=== PATIENT | male | born 1960 | race Caucasian/White ===

== ENCOUNTER 2024-08-15 11:32 | Outpatient (CLI) | payer MEDICAID, SELFPAY ==
--- NOTE | 2024-08-15 11:42 | CT_ITS ---
WS: [id number] CTA THORACIC TECHNIQUE: Contrast enhanced CTA of the thoracic aorta with coronal and sagittal reformatted images and maximum intensity projection (MIP) images. CLINICAL INFORMATION: ANEURYSM OF ARCH OF AORTA W/O RUPTURE COMPARISON: CT 08/30/2023 DLP: 1028.[address] scans at [facility] use at least one of these dose optimization techniques: automated exposure control; mA and/or kV adjustment per patient size (includes targeted exams where dose is matched to clinical indication); or iterative reconstruction. FINDINGS: Dilatation of the thoracic aorta at the aortic root measuring 5.5 cm. This is unchanged from 2023 outside imaging. Otherwise normal caliber thoracic aorta. Normal caliber descending thoracic aorta. Celiac and SMA are patent. Proximal renal arteries are patent. Accessory LEFT renal artery is patent. Proximal main pulmonary arteries are normal. Vertebral artery originates from the aortic arch. Proximal subclavian arteries are patent. Great vessel origins are normal. No mediastinal or hilar lymphadenopathy. No axillary lymphadenopathy. Adrenal glands are normal. RIGHT renal cyst. Small esophageal hiatal hernia. Slight bibasilar atelectasis. No acute pulmonary infiltrates. CT/CT angio chest [id number] IMPRESSION: 1. Dilatation of the aortic root measuring 5.5 cm unchanged since the outside study. 2. LEFT vertebral artery originates from the aortic arch. 3. No other acute findings.
[2024-08-15] MEDS: iohexol 350 mg/mL 500 mL Btl (per mL) IV (12:30)
== END 2024-08-15 11:33 | disposition home or self-care (01) ==
LOC: RAD 11:35
PROVIDERS: PCP Nurse Practitioner; Visit Provider Nurse Practitioner
DX: I77.810 Thoracic aortic ectasia (principal); N28.1 Cyst of kidney, acquired; K44.9 Diaphragmatic hernia without obstruction or gangrene; J98.11 Atelectasis
CPT/HCPCS: 71275

== ENCOUNTER 2024-08-28 09:52 | Outpatient (CLI) | payer MEDICAID, SELFPAY ==
--- NOTE | 2024-08-28 10:01 | USCV_ITS ---
Celso Quinteros Age: 63 Gender: M : 1960 Exam Date: 08/28/2024 10:18 Ordering Phys: Mikie Otero Technologist: PATEL Exam Location: [facility] Indication: aaa screening HISTORY: Diameter (cm) AP x Transverse x Length Velocity (cm/s) Waveform Prox Aorta: 2.28 x 2.21 x 53.50 Triphasic Mid Aorta: 1.81 x 1.86 x 51.80 Triphasic Distal Aorta: 3.15 x 4.03 x 70.20 Triphasic Right Iliac Prox: 1.30 x 1.29 x 73.20 Triphasic Left Iliac Prox: 1.10 x 1.60 x 91.30 Triphasic Stent Prox Landing x x Aneurysmal Sac Max x x Lt Lat Sac Dim Rt Lat Sac Dim Stent Dist Landing x x Right Iliac Stent x x Left Iliac Stent x x Right Renal Art Left Renal Art FINDINGS: CONCLUSIONS Distal AAA measuring 3.1 x 4.0cm AP x trans Normal proximal common iliac arteries Moderate atheromatous plaque Hernan Whalen MD (Electronically Signed) Final Date: 28 August 2024 11:12 S
== END 2024-08-28 09:53 | disposition home or self-care (01) ==
PROVIDERS: PCP Nurse Practitioner; Visit Provider Nurse Practitioner
DX: I71.22 Aneurysm of the aortic arch, without rupture (principal); I70.90 Unspecified atherosclerosis
CPT/HCPCS: 93978

== ENCOUNTER 2024-09-19 12:22 | Emergency (ER) | payer MEDICAID, SELFPAY ==
[2024-09-19 12:38] VITALS: BP 130/82; PULSE 65; RESP 16; TEMP 36.7; O2SAT 98; BMI 29.2
--- OUTSIDE RECORDS SUMMARY | 2024-09-19 12:40 | XMS_ITS | Clinical Summary ---
Author Organization [facility] Address [address] Rajan: Epic Prelude ADT [place]UN[place] [address] Care Team Providers Care Spider Assembler Name Role Phone Wang Morrow Primary Care Provider + Allergies No known active allergies Medications mupirocin (BACTROBAN) 2 % OintmentIndicatio ns:Fungal infection of nail,Ingrown nail of great toe of left foot Apply to affected area daily. 22 Gram 1 4 Active cyclobenzaprine (FLEXERIL) 10 mg tabletIndications :Acute midline low back pain without sciatica Take 1 Tablet (10 mg) by mouth 3 times daily as needed for Spasm, Discomfort or Pain. 30 Tablet 4 Active diclofenac sodium (VOLTAREN) 1 % gel Apply 4 Grams to affected area 4 times daily. 100 Gram 4 Active losartan (COZAAR) 50 mg tabletIndications :Aneurysm of ascending aorta without rupture,Primary hypertension Take 1 Tablet (50 mg) by mouth daily. 90 Tablet 1 4 Active traMADoL (ULTRAM) 50 mg tabletIndications :Acute midline low back pain without sciatica Take 1 Tablet (50 mg) by mouth every 8 hours as needed for Pain. 21 Tablet 4 Active omeprazole (PriLOSEC) 40 mg Capsule, Delayed Release(E.C.) Take 1 Capsule (40 mg) by mouth daily. 90 Capsule 1 5 Active metoprolol succinate (TOPROL XL) 25 mg Extended Release 24 hour tablet take 1/2 tablet by mouth daily 40 Tablet 5 Active Active Problems Problem Noted Date Diagnosed Date Pre-operative cardiovascular examination 024 Flank pain 08/30/2023 Chest pressure 08/30/2023 Constipation 08/30/2023 Infrarenal abdominal aortic aneurysm (AAA) witho ut rupture 08/30/2023 Left lower quadrant abdominal pain 08/30/2023 Renal cyst, right 08/30/2023 Viral gastroenteritis 08/30/2023 Status post below-knee amputation of right lower extremity 06/25/2021 CAD (coronary atherosclerotic disease) 2 Aneurysm of ascending aorta 11/28/2019 Elevated troponin 11/27/2019 Precordial chest pain 11/27/2019 Palpitations 11/27/2019 NSTEMI (non-ST elevated myocardial infarction) 0 11/26/2019 Overview (07/25/2020): Added automatically from request for surgery [id number] Cellulitis of finger of right hand 10/29/2019 Lingual tonsil hypertrophy- prominent tissue left BOT per VSO 08/19/2019 Bo's edema of vocal folds 08/19/2019 Generalized anxiety disorder 06/19/2019 Chronic bilateral low back pain without sciatica 06/19/2019 History of hepatitis C 06/19/2019 Obstructive sleep apnea syndrome 03/29/2019 COPD 09/11/2018 Chronic pain 02/11/2016 Gastroesophageal reflux disease 02/11/2016 Tobacco use 01/26/2015 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 Resolved Problems Problem Noted Date Diagnosed Date Resolved Date Osteomyelitis of right ankle s/p BKA 06/25/2021 09/15/2023 Aortic root dilatation 11/28/201901/17 Sore throat 07/02/2017 06/19/2019 Cellulitis of foot, right 05/12/2017 Ingrown nail of second toe of right foot 05/12/2017 06/19/2019 Arm numbness 02/11/2016 06/19/2019 Other pruritus 02/11/2016 06/19/2019 Gastroesophageal reflux dise ase with esophagitis 06/19/2019 Other chronic pain 0 Encounters Date Type Department Care Team Description 09/18/2024 External Device Data STL ABSTRACTION Provider, Abstract 09/11/2024 External Device Data STL ABSTRACTION Provider, Abstract 08/07/2024 External Device Data STL ABSTRACTION Provider, Abstract 06/26/2024 External Device Data STL ABSTRACTION Provider, Abstract from Last 3 Months Immunizations Immunization Administration Dates Next Due INFLUENZA VACCINE QUADRIVALENT 3 YR UP PF IM INFLUENZA VACCINE QUADRIVALENT 6 MOS UP PF IM ,04/17/2019 Influenza Seasonal Unspecified Formulation IM Family History Medical History Relation Name Comments Cancer Father Jackson prostate cancer Colon Cancer Maternal Grandfather Don Cancer Maternal Grandmother Cheri lymphno de cancer Heart Disease Mother Cami Other Mother Cami heart issues Cancer Paternal Grandfather Zachary prostat e cancer Stroke Paternal Grandmother Susana Healthy Sister Shawnee Unknown Sister Shawnee Relation Name Status Comments Father Jackson Maternal Grandfather Don Maternal Grandmother Cheri Mother Cami Paternal Grandfather Zachary Paternal Grandmother Susana Sister Shawnee Alive Social History Tobacco Use Types Packs/Day Years Used Date Smoking Tobacco: Former Cigarettes Smokeless Tobacco: Never Tobacco Cessation:Counseling Given: Not Answered Alcohol Use Standard Drinks/Week Comments Not Currently 0 (1 standard drink = 0.6 oz pur e alcohol) Feeling Safe Answer Date Recorded Are you in a relationship wi th someone who hurts you emotionally and/or physically? 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 Gender Identity Not on file Sexual Orientation Not on file Last Filed Vital Signs Vital Sign Reading Time Taken Comments Blood Pressure 140/82 01/10/2024 11:00 AM CDT Pulse 74 01/10/2024 9:55 AM CDT Temperature 36.6 C (97.8 F) 01/09/2024 3:38 PM CDT Respiratory Rate 18 01/09/2024 3:38 PM CDT Oxygen Saturation 98% 01/10/2024 9:55 AM CDT Inhaled Oxygen Concentration - - Weight 123.4 kg (272 lb) 01/10/2024 9:55 AM CDT Height 205.7 cm (6' 9 ) 01/10/2024 9:55 AM CDT Body Mass Index 29.15 01/10/2024 9:55 AM CDT Plan of Treatment Health Maintenance Due Date Last Done Comments DTAP/TDAP/TD VACCINES (1 - Tdap) 12/16/1978 FIT-DNA Q 3 years 12/16/2004 FIT/FOBT Q 1 year 12/16/2004 Flex Sig/CT Colonography Q 5 years 12/16/2004 ZOSTER VACCINE (1 of 2) 12/16/2009 RSV VACCINE (60+ or ) (1 - Risk 60-74 years 1-dose series) 2019 INFLUENZA VACCINE (#1) 2023 , 04/17/2019, 01/09/2018, Additional history exists Preventative Visit- Commercial 03/28/2024 09/15/2023 Pre-Diabetes and Diabetes Screening 01/09/2027 01/10/2024, 09/15/2023, 01/15/2022, Additional history exists COLORECTAL SCREENING 12/30/2027 12/29/2022, 12/29/2022, 12/29/2022, Additional history exists Colorectal Cancer Screening 12/30/2027 Procedures Procedure Name Priority Date/Time Associated Diagnosis Comments HEMOGLOBIN A1C Routine 01/10/2024 10:30 AM CDT Nausea Flank pain Prediabetes Aneurysm of ascending aorta without rupture Hematuria, unspecified type Acute midline low back pain without sciatica COLONOSCOPY REPORT 12/29/2022 9: 29 AM CDT from Last 3 Months or Most Recently Relevant to Health Maintenance Results * (ABNORMAL) HEMOGLOBIN A1C (01/10/2024 10:30 AM CDT) HEMOGLOBIN A1C 5.9(H) <5.7 % of total Hgb [facility] Comment: For someone without known diabetes, a hemoglobin A1c value between 5.7% and 6.4% is consistent with prediabetes and should be confirmed with a follow-up test. For someone with known diabetes, a value <7% indicates that their diabetes is well controlled. A1c targets should be individualized based on duration of diabetes, age, comorbid conditions, and other considerations. This assay result is consistent with an increased risk of diabetes. Currently, no consensus exists regarding use of hemoglobin A1c for diagnosis of diabetes for children. ESTIMATED AVERAGE GLUCOSE (MG/DL) 123 mg/dL [facility] ESTIMATED AVERAGE GLUCOSE (MMOL/L) 6.8 mmol/L [facility] Comment: FASTING:YES FASTING: YES Test Performed at: [facility] [id number] [id number] Kenia Pineda MD Blood 01/10/2024 10:3 0 AM CDT 01/10/2024 10:30 AM CDT us Joanna Yanirajimena CHILD CHEMISTRY ORDERABLES Final Resu lt [facility] [phone] [facility] [id number] [id number] * COLONOSCOPY REPORT (12/29/2022 9:29 AM CDT) Narrative Procedure Note Farshad Del Rio MD - 12/29/2022 9:29 AM CDT [facility] GI Patient Name: Celso Quinteros Procedure Date: 12/29/2022 Date of : 1960 Admit Type: Outpatient Age: 62 Attending MD: Farshad Del Rio , , Procedure: Colonoscopy Indications: Change in bowel habits Providers: Farshad Del Rio Referring MD: Wang Morrow DO Medicines: Monitored Anesthesia Care Complications: No immediate complications. Procedure: After I obtained informed consent, the scope was passed under direct vision. Throughout the procedure, the patient's blood pressure, pulse, and oxygen saturations were monitored continuously. The Colonoscope was introduced through the anus and advanced to the cecum, identified by appendiceal orifice and ileocecal valve. The colonoscopy was performed without difficulty. The patient tolerated the procedure well. The quality of the bowel preparation was evaluated using the BBPS ([place] Bowel Preparation Scale) with scores of: Right Colon = 2 (minor amount of residual staining, small fragments of stool and/or opaque liquid, but mucosa seen well), Transverse Colon = 3 (entire mucosa seen well with no residual staining, small fragments of stool or opaque liquid) and Left Colon = 3 (entire mucosa seen well with no residual staining, small fragments of stool or opaque liquid). The total BBPS score equals 8. Estimated Blood Loss: Estimated blood loss was minimal. Findings: Four sessile polyps were found in the descending colon, transverse colon and ascending colon. The polyps were 3 to 5 mm in size. These polyps were removed with a cold snare. Resection and retrieval were complete. The exam was otherwise without abnormality on direct and retroflexion views. Impression: - Four 3 to 5 mm polyps in the descending colon, in the transverse colon and in the ascending colon, removed with a cold snare. Resected and retrieved. - The examination was otherwise normal on direct and retroflexion views. Recommendation: - Await pathology results. Farshad Del Rio, 12/29/2022 9:29:34 AM Number of Addenda: 0 Note Initiated On: 12/29/2022 8:55 AM Scope Withdrawal Time 0 hours 11 minutes 46 seconds Scope In: 9:06:27 AM Scope Out: 9:22:50 AM [address] [place], [place] Farshad Del Rio MD GI PROCEDURE ORDERABLES Final Result from Last 3 Months or Most Recently Relevant to Health Maintenance Insurance [employer] [facility] Commercial * Guarantor: [id number] Account Type Relation to Patient Date of Phone Billing Address Workers Comp Employer * Guarantor: [id number] Account Type Relation to Patient Date of Phone Billing Address Workers Comp Employer Advance Directives For more information, please contact: [phone] * Full Code (Latest Code Status on File) Date Activated Date Inactivated Comments 10/03/2023 7:27 AM 10/03/2023 3:30 PM * Full Code Date Activated Date Inactivated Comments 12/29/2022 8:31 AM 12/29/2022 12:07 PM * Full Code Date Activated Date Inactivated Comments 06/25/2021 7:23 PM 06/30/2021 1:12 PM Care Teams Spider Assembler Relationship Specialty Start Date End Date Wang Morrow DO [address] [place] [phone] PCP - General Internal Medicine 02/12/21
--- OUTSIDE RECORDS SUMMARY | 2024-09-19 12:41 | XMS_ITS | Encounter Summary ---
Author Organization [facility] Address [address] [place] [address] Care Team Providers Care Top Collar Maker Name Role Phone Wang Morrow DO Primary Care Provider + Reason for Visit * Reason Onset Date Comments preauth 11/18/2022 Encounter Details Date Type Department Care Team (Late st Contact Info) Description 11/18/2022 Telephone [facility] [address] [place] [address] Yusef De La Paz MD NO ADDRESS ON FILE [facility] Social History Tobacco Use Types Packs/Day Years Used Date Smoking Tobacco: Every Day Cigarettes Smokeless Tobacco: Never Alcohol Use Standard Drinks/Week Comments Not Currently 0 (1 standard drink = 0.6 oz pur e alcohol) Sex and Gender Information Value Date Recorded Sex Assigned at Not on file Legal Sex Male 2:51 PM CONTACT CENTER REPRESENTATIVE Gender Identity Not on file Sexual Orientation Not on file documented as of this encounter Miscellaneous Notes * Telephone Encounter - Carlee Grace - 11/18/2022 8:[address] De La Paz Call back # [phone] Multiple recipients? No Jose A calls with [facility] info . [place] studies have been approved . Auth [id number]. Lucas for 30 days . documented in this encounter Plan of Treatment Not on file documented as of this encounter Visit Diagnoses Not on filedocumented in this encounter Additional Health Concerns Assessment Noted Time PHQ-9 Depression Total Score: 2 02/12/20 21 2:00 PM CONTACT CENTER REPRESENTATIVE documented as of this encounter Care Teams Top Collar Maker Relationship Specialty Start Date End Date Wang Morrow DO [address] [place] [address] PCP - General Internal Medicine 02/12/21 documented as of this encounter
--- OUTSIDE RECORDS SUMMARY | 2024-09-19 12:41 | XMS_ITS | Encounter Summary ---
Author Organization [facility] Address [address] [place] [address] Care Team Providers Care Ditching Machine Operator Name Role Phone Fany Hernandes MD Primary Care Provider [phone] Encounter Details Date Type Department Care Team (Latest Contact Info) Description 05/10/2006 Outpatient Historical [facility] Occupational Medicine [address] [address] Anant Garcia Jr., MD NO ADDRESS ON FILE Routine Medical Exam (Primary Dx) Social History Tobacco Use Types Packs/Day Years Used Date Smoking Tobacco: Never Assessed Sex and Gender Information Value Date Recorded Sex Assigned at Not on file 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 Gender Identity Not on file Sexual Orientation Not on file documented as of this encounter Plan of Treatment Not on file documented as of this encounter Visit Diagnoses Diagnosis Routine medical exam- Primary Routine general medical examination at a health care facility documented in this encounter Additional Health Concerns Infection Onset Date Last Indicated Resolved Time R/O COVID-19 11/07/2019 11/07/2019 11/09/2019 8:45 AM CDT R/O COVID-19 01/25/2020 01/25/2020 01/26/2020 4:01 PM CDT documented as of this encounter Care Teams Ditching Machine Operator Relationship Specialty Start Date End Date Fany Hernandes MD PCP - General Family Practice 06/12/19 documented as of this encounter
--- OUTSIDE RECORDS SUMMARY | 2024-09-19 12:41 | XMS_ITS | Encounter Summary ---
Author Organization [facility] Address [address] [place] [address] Care Team Providers Care Bottom Man Name Role Phone Fany Hernandes MD Primary Care Provider [phone] Encounter Details Date Type Department Care Team (Latest Contact Info) Description 05/31/2002 Outpatient Historical [facility] [address] [place] [address] Damian Porter, DDS [address] [place] [address] COMMUNIC DIS CONTACT NOS (Primary Dx) Social History Tobacco Use Types Packs/Day Years Used Date Smoking Tobacco: Never Assessed Sex and Gender Information Value Date Recorded Sex Assigned at Not on file Legal Sex Male 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 Gender Identity Not on file Sexual Orientation Not on file documented as of this encounter Plan of Treatment Not on file documented as of this encounter Visit Diagnoses Diagnosis Contact with or exposure to unspecified communicable disease- Primary documented in this encounter Additional Health Concerns Infection Onset Date Last Indicated Resolved Time R/O COVID-19 11/07/2019 11/07/2019 11/09/2019 8:45 AM CDT R/O COVID-19 01/25/2020 01/25/2020 01/26/2020 4:01 PM CDT documented as of this encounter Care Teams Bottom Man Relationship Specialty Start Date End Date Fany Hernandes MD PCP - General Family Practice 06/12/19 documented as of this encounter
--- OUTSIDE RECORDS SUMMARY | 2024-09-19 12:41 | XMS_ITS | Encounter Summary ---
Author Organization [facility] Address [address] [place] [address] Care Team Providers Care Lurer Name Role Phone Wang Morrow DO Primary Care Provider + Encounter Details Date Type Department Care Team (Late st Contact Info) Description 09/18/2024 External Device Data [facility] ABSTRACTION Provider, Abstract NO ADDRESS ON FILE Social History Tobacco Use Types Packs/Day Years Used Date Smoking Tobacco: Former Cigarettes Smokeless Tobacco: Never Alcohol Use Standard Drinks/Week Comments Not Currently 0 (1 standard drink = 0.6 oz pur e alcohol) Feeling Safe Answer Date Recorded Are you in a relationship wi th someone who hurts you emotionally and/or physically? No 01/09/2024 Sex and Gender Information Value Date Recorded Sex Assigned at Not on file Legal Sex Male 2:51 PM DIALYSIS CLINICAL MANAGER Gender Identity Not on file Sexual Orientation Not on file documented as of this encounter Plan of Treatment Not on file documented as of this encounter Visit Diagnoses Not on filedocumented in this encounter Care Teams Lurer Relationship Specialty Start Date End Date Wang Morrow DO [address] [place] [phone] PCP - General Internal Medicine 02/12/21 documented as of this encounter
--- OUTSIDE RECORDS SUMMARY | 2024-09-19 12:41 | XMS_ITS | Encounter Summary ---
Author Organization [facility] Address [address] [place] [address] Care Team Providers Care Fur Blender Name Role Phone Fany Hernandes MD Primary Care Provider [phone] Encounter Details Date Type Department Care Team (Late st Contact Info) Description 01/17/2007 Emergency [facility] Emergency Department [address] 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 Gender Identity Not on file Sexual Orientation Not on file documented as of this encounter Plan of Treatment Not on file documented as of this encounter Visit Diagnoses Diagnosis Acute bronchitis- Primary documented in this encounter Additional Health Concerns Infection Onset Date Last Indicated Resolved Time R/O COVID-19 11/07/2019 11/07/2019 11/09/2019 8:45 AM CDT R/O COVID-19 01/25/2020 01/25/2020 01/26/2020 4:01 PM CDT documented as of this encounter Care Teams Fur Blender Relationship Specialty Start Date End Date Fany Hernandes MD PCP - General Family Practice 06/12/19 documented as of this encounter
--- OUTSIDE RECORDS SUMMARY | 2024-09-19 12:41 | XMS_ITS | Encounter Summary ---
Author Organization [facility] Address [address] [place] [address] Care Team Providers Care Installers Mechanical Name Role Phone Fany Hernandes MD Primary Care Provider [phone] Encounter Details Date Type Department Care Team (Latest Contact Info) Description 12/20/1997 Outpatient Historical [facility] [address] [place] [address] Gaby Taylor MD [address] [place] [phone] Lumbago (Primary Dx) Social History Tobacco Use Types Packs/Day Years Used Date Smoking Tobacco: Never Assessed Sex and Gender Information Value Date Recorded Sex Assigned at Not on file 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 Gender Identity Not on file Sexual Orientation Not on file documented as of this encounter Plan of Treatment Not on file documented as of this encounter Visit Diagnoses Diagnosis Lumbago- Primary documented in this encounter Additional Health Concerns Infection Onset Date Last Indicated Resolved Time R/O COVID-19 11/07/2019 11/07/2019 11/09/2019 8:45 AM CDT R/O COVID-19 01/25/2020 01/25/2020 01/26/2020 4:01 PM CDT documented as of this encounter Care Teams Installers Mechanical Relationship Specialty Start Date End Date Fany Hernandes MD PCP - General Family Practice 06/12/19 documented as of this encounter
--- OUTSIDE RECORDS SUMMARY | 2024-09-19 12:41 | XMS_ITS | Encounter Summary ---
Author Organization [facility] Address [address] [place] [address] Care Team Providers Care Market Asset Protection Manager Name Role Phone Wang Morrow DO Primary Care Provider + Encounter Details Date Type Department Care Team (Late st Contact Info) Description 09/11/2024 External Device Data [facility] ABSTRACTION Provider, [...] on file Legal Sex Male 2:51 PM MIDDLE OR INTERMEDIATE SCHOOL PRINCIPAL Gender Identity Not on file Sexual Orientation Not on file documented as of this encounter Plan of Treatment Not on file documented as of this encounter Visit Diagnoses Not on filedocumented in this encounter Care Teams Market Asset Protection Manager Relationship Specialty Start Date End Date Wang Morrow DO [address] [place] [phone] PCP - General Internal Medicine 02/12/21 documented as of this encounter
--- OUTSIDE RECORDS SUMMARY | 2024-09-19 12:41 | XMS_ITS | Encounter Summary ---
Author Organization [facility] Address [address] [place] [address] Care Team Providers Care Outside Physical Damage Appraiser Name Role Phone Wang Morrow Primary Care Provider + Encounter Details Date Type Department Care Team (Late st Contact Info) Description 08/30/2023 Lab Requisition [facility] Laboratory Services [address] [place] [address] Tere Simmons, EDGER TECHNICIAN [address] [place] [address] Unspecified abdominal pain Social History Tobacco Use Types Packs/Day Years Used Date Smoking Tobacco: Every Day Cigarettes Smokeless Tobacco: Never Alcohol Use Standard Drinks/Week Comments Not Currently 0 (1 standard drink = 0.6 oz pur e alcohol) Feeling Safe Answer Date Recorded Are you in a relationship wi th someone who hurts you emotionally and/or physically? No 12/29/2022 Sex and Gender Information Value Date Recorded Sex Assigned at Not on file Legal Sex Male 2:51 PM PET TECHNOLOGIST Gender Identity Not on file Sexual Orientation Not on file documented as of this encounter Plan of Treatment Not on file documented as of this encounter Procedures Procedure Name Priority Date/Time Associated Diagnosis Comments EXTRA TUBE (BLUE) Routine 08/30/2023 11: 54 AM CDT Unspecified abdominal pain CBC WITH DIFFERENTIAL Stat 08/30/2023 11:54 AM CDT Unspecified abdominal pain C-REACTIVE PROTEIN Stat 08/30/2023 11 :54 AM CDT Unspecified abdominal pain TROPONIN Stat 08/30/2023 11:54 AM CDT Unspecified abdominal pain LIPASE Stat 08/30/2023 11:54 AM CDT Unspecified abdominal pain COMPREHENSIVE METABOLIC PANEL Stat 08/30/2023 11:54 AM CDT Unspecified abdominal pain documented in this encounter Results * EXTRA TUBE (BLUE) (08/30/2023 11:54 AM CDT) Blood Collection / Unknown 08/30/2023 11:54 AM CDT 08/30/2023 12:20 PM CDT Tere BEDOYAP HEMATOLOGY ORDERABLES Final Result Performing Organization Address [facility] Co de Phone Number [facility] CLIA # [id number] [address] [facility] [place] [address] * TROPONIN (08/30/2023 11:54 AM CDT) TROPONIN T, 5TH GEN 8 <=15 ng/L 08/30/2023 12:[address] [facility] Blood Collection / Unknown 08/30/2023 11:54 AM CDT 08/30/2023 12:20 PM CDT Narrative [facility]ORATORY [facility] - 08/30/2023 12:52 PM CDT Troponin Detectable but normal range. Tere BEDOYAP CHEMISTRY ORDERABLES Final Result Performing Organization Address City/[facility] [address]/ZIP Co de Phone Number [facility] CLIA # [id number] [address] [place], [place] [address] * C-REACTIVE PROTEIN (08/30/2023 11:54 AM CDT) CRP 3.4 0.0 - 5.0 mg/L 08/30/2023 12:[address] [facility] Blood Collection / Unknown 08/30/2023 11:54 AM CDT 08/30/2023 12:20 PM CDT Tere BEDOYAP CHEMISTRY ORDERABLES Final Result Performing Organization Address [facility] [address]/[facility] Co de Phone Number [facility] CLIA # [id number] [address] [address] [place] [address] * LIPASE (08/30/2023 11:54 AM CDT) Pathologist [facility] LIPASE 25 13 - 60 U/L 08/30/2023 12:[address] [facility] Blood Collection / Unknown 08/30/2023 11:54 AM CDT 08/30/2023 12:20 PM CDT eTre BEDOYAP CHEMISTRY ORDERABLES Final Result Performing Organization Address [facility] [address]/[facility] de Phone Number [facility] CLIA # [id number] [address] [address] * (ABNORMAL) COMPREHENSIVE METABOLIC PANEL (08/30/2023 11:54 AM CDT) SODIUM 138 136 - 145 mmol/L 08/30/2023 12:[address] [facility] POTASSIUM 4.3 3.5 - 5.1 mmol/L 08/30/2023 12:[address] [facility] CHLORIDE 104 98 - 107 mmol/L 08/30/2023 12:[address] [facility] CO2 22 22 - 29 mmol/L 08/30/2023 12:[address] [facility] CALCIUM 9.7 8.8 - 10.2 mg/dL 08/30/2023 12:56 PM [facility] BUN 13 8 - 23 mg/dL 08/30/2023 12:56 PM [facility] CREATININE 1.09 0.67 - 1.17 mg/dL 08/30/2023 12:56 PM [facility] GLUCOSE 107(H) 74 - 99 mg/dL 08/30/2023 12:56 PM [facility] TOTAL PROTEIN 6.8 6.4 - 8.3 g/dL 08/30/2023 12:56 PM [facility] ALBUMIN 4.6 3.5 - 5.2 g/dL 08/30/2023 12:56 PM [facility] BILIRUBIN TOTAL 0.6 0.2 - 1.0 mg/dL 08/30/2023 12:56 PM [facility] ALKALINE PHOSPHATASE 92 40 - 129 U/L 08/30/2023 12:56 PM [facility] AST 11 10 - 50 U/L 08/30/2023 12:56 PM [facility] ALT 7 <=50 U/L 08/30/2023 12:56 PM [facility] GFR >60 >=60 mL/min/1.7 3 sq meter 08/30/2023 12:56 PM [facility] Comment:eGFR calculated with 2020 CKD-EPI equation. Vegetarian diet, extremely high or low muscle mass, and may affect results. Cystatin C with Glomerular Filtration Rate is a suitable alternative for these patients. ANION GAP 12 9 - 20 mmol/L 08/30/2023 12:56 PM [facility] Blood Collection / Unknown 08/30/2023 11:54 AM CDT 08/30/2023 12:20 PM CDT Tere CHIU CHEMISTRY ORDERABLES Final Result [facility] CLIA # [id number] [address] [address] [place] [address] * (ABNORMAL) CBC WITH DIFFERENTIAL (08/30/2023 11:54 AM CDT) [facility] WBC 8.0 4.8 - 10.8 K/uL 08/30/2023 12:26 PM [facility] RBC 5.10 4.60 - 6.20 M/uL 08/30/2023 12:26 PM [facility] HEMOGLOBIN 16.2 14.0 - 18.0 g/dL 08/30/2023 12:26 PM [facility] HEMATOCRIT 45.1 41.0 - 53.0 % 08/30/2023 12:26 PM [facility] MCV 88.4 84.0 - 103.0 fL 08/30/2023 12:26 PM [facility] MCH 31.8 27.0 - 34.0 pg 08/30/2023 12:26 PM [facility] MCHC 35.9(H) 30.0 - 35.0 g/dL 08/30/2023 12:26 PM [facility] RDW 13.2 11.0 - 14.5 % 08/30/2023 12:26 PM [facility] RDW-STDEV 42.5 37.0 - 54.0 fL 08/30/2023 12:26 PM [facility] PLATELETS 240 140 - 440 K/uL 08/30/2023 12:26 PM [facility] MPV 10.0 8.9 - 12.8 fL 08/30/2023 12:26 PM [facility] NEUTROPHILS 60 42 - 75 % 08/30/2023 12:26 PM [facility] LYMPHOCYTES 28 24 - 44 % 08/30/2023 12:26 PM [facility] MONOCYTES 10 2 - 10 % 08/30/2023 12:26 PM [facility] EOSINOPHILS 2 0 - 7 % 08/30/2023 12:[address] [facility] BASOPHILS 1 0 - 1 % 08/30/2023 12:[address] [facility] IMMATURE GRANULOCYTES 1 0 - 2 % 08/30/2023 12:[address] [facility] NEUTROPHIL ABSOLUTE 4.76 2.00 - 8.00 K/uL 08/30/2023 12:[address] [facility] LYMPHOCYTE ABSOLUTE 2.20 1.20 - 4.00 K/uL 08/30/2023 12:[address] [facility] MONOCYTE ABSOLUTE 0.76(H) 0.10 - 0.60 K/uL 08/30/2023 12:[address] [facility] EOSINOPHIL ABSOLUTE 0.16 0.00 - 0.70 K/uL 08/30/2023 12:[address] [facility] BASOPHILS ABSOLUTE 0.05 0.00 - 0.20 K/uL 08/30/2023 12:[address] [facility] IMMATURE GRANULOCYTES ABSOLUTE 0.04 0.00 - 0.10 K/uL 08/30/2023 12:[address] [facility] Blood Collection / Unknown 08/30/2023 11:54 AM CDT 08/30/2023 12:20 PM CDT Tere CHIU HEMATOLOGY ORDERABLES Final Result Performing Organization Address City/State/[facility] Co de Phone Number [facility] CLIA # [id number] [address] [address] documented in this encounter Visit Diagnoses Diagnosis Unspecified abdominal pain documented in this encounter Additional Health Concerns Assessment Noted Time PHQ-9 Depression Total Score: 2 02/12/20 21 2:00 PM PET TECHNOLOGIST documented as of this encounter Care Teams Outside Physical Damage Appraiser Relationship Specialty Start Date End Date Wang Morrow DO [address] [address] PCP - General Internal Medicine 02/12/21 documented as of this encounter
--- OUTSIDE RECORDS SUMMARY | 2024-09-19 12:41 | XMS_ITS | Encounter Summary ---
Author Organization [facility] Address [address] [place] [address] Care Team Providers Care Emergency Medical Service Coordinator Name Role Phone Fany Hernandes MD Primary Care Provider [phone] Encounter Details Date Type Department Care Team (Late st Contact Info) Description 01/28/2003 Emergency [facility] Emergency Department [address] [place] [address] Ed, Physician NO ADDRESS ON FILE COUGH (Primary Dx) Social History Tobacco Use Types Packs/Day Years Used Date Smoking Tobacco: Never Assessed Sex and Gender Information Value Date Recorded Sex Assigned at Not on file Legal Sex Male 3:02 AM ACADEMIC HOSPITALIST Gender Identity Not on file Sexual Orientation Not on file documented as of this encounter Plan of Treatment Not on file documented as of this encounter Visit Diagnoses Diagnosis Cough- Primary documented in this encounter Additional Health Concerns Infection Onset Date Last Indicated Resolved Time R/O COVID-19 11/07/2019 11/07/2019 11/09/2019 8:45 AM CDT R/O COVID-19 01/25/2020 01/25/2020 01/26/2020 4:01 PM CDT documented as of this encounter Care Teams Emergency Medical Service Coordinator Relationship Specialty Start Date End Date Fany Hernandes MD PCP - General Family Practice 06/12/19 documented as of this encounter
--- OUTSIDE RECORDS SUMMARY | 2024-09-19 12:41 | XMS_ITS | Encounter Summary ---
Author Organization [facility] Address [address] [place] [address] Care Team Providers Care Sand Drier Name Role Phone Wang Morrow DO Primary Care Provider + Reason for Visit * Reason Onset Date Comments Needs Appointment 08/12/2023 Encounter Details Date Type Department Care Team (Late st Contact Info) Description 08/12/2023 Telephone [facility] [address] [facility] [address] [place] [address] Kathy Be DO [address] [facility] [address] [place] [address] Needs Appointment Social History Tobacco Use Types Packs/Day Years [...] on file Legal Sex Male 2:51 PM SOFTWARE DEVELOPER INTERN Gender Identity Not on file Sexual Orientation Not on file documented as of this encounter Miscellaneous Notes * Telephone Encounter - Miguelangel Emily - 08/12/2023 9:24 AM CDT [place] (Provider) MESSAGE Pt states that he had tests completed in 2022 and has not been able to hear the results as the ordering provider, Dr De La Paz in [facility] Surgery, left. Pt was initially transferred to CT Surgery, but was transferred back. Pt was advised we would need a new referral due to time it has been since he was last seen, pt was very upset and states he should be able to get an appt without a new referral as he paida lot of money for these tests and wants to know the results. Please confirm. [facility] Orthophoto Tech/[place]raft[place]man: Emily Means documented in this encounter Plan of Treatment Not on file documented as of this encounter Visit Diagnoses Not on filedocumented in this encounter Additional Health Concerns Assessment Noted Time PHQ-9 Depression Total Score: 2 02/12/20 21 2:00 PM SOFTWARE DEVELOPER INTERN documented as of this encounter Care Teams Sand Drier Relationship Specialty Start Date End Date Wang Morrow DO [address] [place] [phone] PCP - General Internal Medicine 02/12/21 documented as of this encounter
--- OUTSIDE RECORDS SUMMARY | 2024-09-19 12:41 | XMS_ITS | Clinical Summary ---
Author Organization [facility] Address [address] [place] [address] Phone Care Team Providers Care Mcat Instructor Name Role Phone Fany Hernandes MD Primary Care Provider [phone] Allergies No known active allergies Medications inhalational spacing device Spacer Use with albuterol inhaler. 1 Device 8 Active aspirin (ECOTRIN EC) 81 mg Tablet, Delayed Release (E.C.) Take 1 Tablet (81 mg) by mouth daily. 0 Active omeprazole (PriLOSEC) 40 mg Capsule, Delayed Release(E.C.) TAKE 1 CAPSULE BY MOUTH EVERY DAY 90 Capsule 3 0 Active sertraline (ZOLOFT) 100 mg tablet TAKE 1/2 TO 1 TABLET (50-100 MG) BY MOUTH DAILY 90 Tablet 2 0 Active ondansetron (Zofran ODT) 4 mg Tablet, Rapid DissolveIndicati ons:Bilious vomiting with nausea Take 1 Tablet (4 mg) by mouth every 8 hours as needed for Nausea/Emesis. Dissolve tablet on top of tongue, then swallow with saliva. 15 Tablet 3 0 Active tamsulosin (FLOMAX) 0.4 mg capsuleIndicatio ns:Benign prostatic hyperplasia with nocturia TAKE 2 CAPSULES (0.8 MG) BY MOUTH DAILY. 60 Capsule 10 0 Active zolpidem (AMBIEN) 10 mg tabletIndication s:Insomnia, unspecified type TAKE 1/2 TO 1 TABLET (5-10 MG) BY MOUTH NIGHTLY NEEDED FOR INSOMNIA (USE LOWEST DOSE POSSIBLE) 60 Tablet 1 0 Active albuterol HFA 90 mcg inhalerIndicatio ns:Chronic obstructive pulmonary disease, unspecified COPD type (CMS/HCC) Take 2 Puffs by inhalation every 6 hours as needed for Shortness of Breath or Wheezing. 8.5 Gram 11 1 Active fluticasone furoate-vilanter oL (BREO ELLIPTA) 100-25 mcg/dose Disk with DeviceIndication s:Chronic obstructive pulmonary disease, unspecified COPD type (CMS/HCC) Take 1 Puff by inhalation daily. 1 Each 5 1 Active finasteride (PROSCAR) 5 mg tablet 0 Active tiZANidine (ZANAFLEX) 4 mg Tablet Take 1 Tablet (4 mg) by mouth daily at bedtime. 90 Tablet 1 Active metoprolol succinate (TOPROL XL) 25 mg Extended Release 24 hour tablet TAKE 1/2 TABLET (12.5 MG) BY MOUTH DAILY. 30 Tablet 10 1 Active atorvastatin (LIPITOR) 40 mg tablet TAKE 1 TABLET (40 MG) BY MOUTH DAILY AT BEDTIME. 90 Tablet 2 1 Active Active Problems Problem Noted Date Diagnosed Date Aneurysm of ascending aorta 11/28/2019 Palpitations 11/27/2019 Precordial chest pain 11/27/2019 Elevated troponin 11/27/2019 NSTEMI (non-ST elevated myocardial infarction) 0 11/26/2019 Overview (11/27/2019): Added automatically from request for surgery [id number] Cellulitis of finger of right hand 10/29/2019 Lingual tonsil hypertrophy- prominent tissue left BOT per VSO 08/19/2019 Bo's edema of vocal folds 08/19/2019 Chronic bilateral low back pain without sciatica 06/19/2019 Generalized anxiety disorder 06/19/2019 History of hepatitis C 06/19/2019 Obstructive sleep apnea syndrome 03/29/2019 COPD 09/11/2018 Chronic pain 02/11/2016 Gastroesophageal reflux disease 02/11/2016 Tobacco use 01/26/2015 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 Resolved Problems Problem Noted Date Diagnosed Date Resolved Date Aortic root dilatation 11/28/201901/17 Sore throat 07/02/2017 06/19/2019 Cellulitis of foot, right 05/12/2017 Ingrown nail of second toe of right foot 05/12/2017 06/19/2019 Arm numbness 02/11/2016 06/19/2019 Other pruritus 02/11/2016 06/19/2019 Other chronic pain 0 Gastroesophageal reflux dise ase with esophagitis 06/19/2019 Immunizations Immunization Administration Dates Next Due INFLUENZA VACCINE QUADRIVALE NT 3 YR UP PF IM 02/23/2018(Deferred: Other (See comments)),01/20/2017 INFLUENZA VACCINE QUADRIVALE NT 6 MOS UP PF IM 04/17/2019 Influenza Seasonal Unspecifi ed Formulation IM 01/09/2018 Family History Medical History Relation Name Comments [...] Years Used Date Smoking Tobacco: Former Cigarettes 0.5 20 0 03/28/1999 - 03/28/2019 Smokeless Tobacco: Never Tobacco Cessation:Counseling Given: No Alcohol Use Standard Drinks/Week Comments Yes 0 (1 standard drink = 0.6 oz pur e alcohol) Twice yearly Sex and Gender Information Value Date Recorded Sex Assigned at Not on file Legal Sex Male 3:02 AM NEWSSTAND VENDOR Gender Identity Not on file Sexual Orientation Not on file Last Filed Vital Signs Vital Sign Reading Time Taken Comments Blood Pressure 126/84 02/19/2020 11:42 AM NEWSSTAND VENDOR Pulse 67 02/19/2020 11:42 AM NEWSSTAND VENDOR Temperature 36.8 C (98.2 F) 01/25/2020 4:14 PM CDT Respiratory Rate 16 11/28/2019 12:00 PM CDT Oxygen Saturation 94% 02/19/2020 11:42 AM NEWSSTAND VENDOR Inhaled Oxygen Concentration - - Weight 127 kg (280 lb) 02/19/2020 11:42 AM NEWSSTAND VENDOR Height 205.7 cm (6' 9 ) 02/19/2020 11:42 AM NEWSSTAND VENDOR Body Mass Index 30 02/19/2020 11:42 AM NEWSSTAND VENDOR Plan of Treatment Health Maintenance Due Date Last Done Comments Pre-Diabetes and Diabetes Screening 1960 DTAP/TDAP/TD VACCINES (1 - Tdap) 12/16/1978 FIT-DNA Q 3 years 12/16/2004 FIT/FOBT Q 1 year 12/16/2004 Flex Sig/CT Colonography Q 5 years 12/16/2004 ZOSTER VACCINE (1 of 2) 12/16/2009 RSV VACCINE (60+ or ) (1 - Risk 60-74 years 1-dose series) 2019 COLORECTAL SCREENING 09/05/2022 09/05/2017, 09/06/19 18 Colorectal Cancer Screening 09/05/2022 INFLUENZA VACCINE (#1) 2023 0, 01/09/2018, 01/20/2017 Procedures Procedure Name Priority Date/Time Associated Diagnosis Comments COLONOSCOPY REPORT 09/05/2017 3: 43 PM CDT from Last 3 Months or Most Recently Relevant to Health Maintenance Results * COLONOSCOPY REPORT (09/05/2017 3:43 PM CDT) Narrative Procedure Note Pedro Luis Osei MD - 09/05/2017 3:42 PM CDT [facility] GI Patient Name: Celso Quinteros Procedure Date: 09/05/2017 Date of : 1960 Admit Type: Outpatient Age: 56 Attending MD: Pedro Luis Osei MD Procedure: Colonoscopy Indications: High risk colon cancer surveillance: Personal history of colonic polyps Providers: Pedro Luis Osei MD Referring MD: Pretty Shabazz MD Medicines: Midazolam 5 mg IV, Fentanyl 100 micrograms IV Complications: No immediate complications. Procedure: After I [...] The quality of the bowel preparation was adequate. Estimated Blood Loss: Estimated blood loss was minimal. Findings: The perianal and digital rectal examinations were normal. A 5 mm polyp was found in the sigmoid colon. The polyp was sessile. The polyp was removed with a cold snare. Resection and retrieval were complete. The exam was otherwise normal throughout the examined colon. Impression: - One 5 mm polyp in the sigmoid colon, removed with a cold snare. Resected and retrieved. Recommendation: - Await pathology results. - Repeat colonoscopy in 5 years for surveillance. Pedro Luis Osei MD 09/05/2017 3:42:11 PM Number of Addenda: 0 Note Initiated On: 09/05/2017 3:17 PM Scope Withdrawal Time 0 hours 6 minutes 26 seconds Scope In: 3:24:24 PM Scope Out: 3:37:06 PM [address] [place], [place] Pedro Luis Osei MD GI PROCEDURE ORDERABLES Final R esult from Last 3 Months or Most Recently Relevant to Health Maintenance Insurance [employer] Advance Directives For more information, please contact: [phone] * Full Code (Latest Code Status on File) Date Activated Date Inactivated Comments 11/26/2019 11:59 PM 11/28/2019 5:33 PM * Full Code Date Activated Date Inactivated Comments 07/06/2018 2:17 PM 07/06/2018 5:17 PM * Full Code Date Activated Date Inactivated Comments 09/05/2017 1:10 PM 09/05/2017 6:04 PM * Full Code Date Activated Date Inactivated Comments 05/11/2017 11:55 PM 05/13/2017 3:41 PM Care Teams Mcat Instructor Relationship Specialty Start Date End Date Fany Hernandes MD PCP - General Family Practice 06/12/19
--- NOTE | 2024-09-19 12:55 | ED_ITS ---
HPI - Back Pain/Injury General: Chief Complaint: Back Pain/Injury Stated Complaint: low back pain Time Seen by Provider: 09/19/24 12:55 Source: patient and family Mode of arrival: ambulatory Limitations: no limitations History of Present Illness: Patient is a 63-year-old male presents to ED today with a complaint of lower back pain over the past 2 weeks or so. No known injury or trauma. He states p ain seems to be worse with walking and certain movements. He occasionally can get in a position of comfort but states pain immediately begins again when he moves and gets up. He states occasionally pain will radiate into his buttocks. He is not having any radicular symptoms down into his lower extremities. Reports a history of degenerative disc disease. Has had to have previous sacral injections. He is not complaining of any abdominal pain or flank pain. No hematuria. Denies numbness, tingling, loss of sensation to his legs. He has not noticed any color or temperature changes to them. Reports pain feels nerve like describing it as sharp and burning. MD elicited complaint: back pain Onset (ago): week(s) Timing: constant Severity: moderate Pain scale (0-10): 6 Quality: burning and sharp Location: lumbar spine Radiation: none Exacerbating factors: movement and walking Relieving factors: none Associated symptoms: Reports no associated symptoms; Deny abdominal pain, chills, dysuria, fatigue, fever(s) or hematuria Treatments prior to arrival: cold therapy, heat therapy, NSAIDS and other (topical biofreeze) Work related injury: No Related Data Previous Rx's ?Medication ?Instructions ?Recorded ibuprofen 800 mg tablet 800 mg PO Q8H PRN pain #20 t abs 09/19/24 methocarbamol 500 mg tablet 1,000 mg (2 x 500 mg) PO Q 8H #30 09/19/24 tabs prednisone 10 mg tablet 10 mg PO DAILY 6 days #20 ta bs 09/19/24 Allergies Allergy/AdvReac Type Severity Reaction Status Date / Time No Known Allergies Allergy Verified 09/19/24 12:42 Review of Systems Const: Denies: fever(s), chills, body aches, fatigue or malaise Card: Denies: chest pain Resp: Denies: dyspnea GI: Denies: abdominal pain : Denies: flank pain, difficulty urinating, dysuria or hematuria Musc: Reports: back pain; Denies: neck pain, extremity pain, extremity swelling, joint pain, joint swelling or joint redness Skin/Breast: Denies: rash Neuro: Denies: headache(s), numbness in extremities, weakness in extremities, sensory changes or dizziness Physical Exam Const: COMMON NORMALS: no acute distress, average body habitus, patient oriented x3, no limitations, healthy appearing, alert and well nourished GENERAL APPEARANCE: cooperative ORIENTATION/CONSCIOUSNESS: Yes awake, Yes oriented to person, Yes oriented to place and Yes oriented to time Resp: COMMON NORMALS: normal respiratory effort and clear to auscultation bilaterally AUSCULTATION: clear to auscultation bilaterally Cardio: COMMON NORMALS: regular rate and regular rhythm RATE: regular rate RHYTHM: regular rhythm GI: COMMON NORMALS: Normal to inspection, nondistended, normoactive bowel sounds present, Soft to palpation, non-tender and no masses PALPATION: Yes Soft to palpation : COMMON NORMALS: Yes no CVA tenderness BLADDER/KIDNEY EXAM: Yes no CVA tenderness Back/Pelvis: COMMON NORMALS: no CVA tenderness, thoracic and lumbar spine norm al to inspection and straight leg raise negative bilaterally THORACIC SPINE/UPPER BACK: No thoracic spinal tenderness LUMBAR SPINE/LOWER BACK: Yes pain with ROM, Yes lumbar spinal tenderness, No mass present and Yes straight leg raise negative bilaterally PELVIS: Yes buttocks normal and No sciatic notch tenderness SACROILIAC JOINTS: Yes SI joints normal SACRUM: no tenderness COCCYX: no tenderness Extremity: COMMON NORMALS: capillary refill normal, no clubbing, cyanosis or edema, no calf tenderness and no pedal edema GENERAL: Yes normal exam except as noted Neuro: COMMON NORMALS: patient oriented x3, moves all extremities, no focal motor deficits, no sensory deficits noted and gait normal SENSORIUM/ORIENTATION: Yes alert, Yes oriented to person, Yes oriented to place and Yes oriented to time MOTOR EXAM: 5/5 motor strength present throughout Skin: COMMON NORMALS: no rashes or lesions noted GENERAL SKIN EXAM: no rashes or lesions noted Course Vital Signs: Vital signs: Vital Signs Temperature 98.1 F 09/19/24 12:38 Pulse Rate 65 09/19/24 12:38 Respiratory Rate 19 H 09/19/24 13:23 Blood Pressure 130/82 09/19/24 12:38 Pulse Oximetry 94 09/19/24 13:23 Oxygen Delivery Me thod Room Air 09/19/24 12:38 MDM - Back Pain/Injury Medical Decision Making XR showing no acute fxs. He feels better with meds given here. Will place on steroids, NSAIDS, muscle relaxers and will have him follow up with PCP. Medical Records I reviewed the patient's medical records. Labs Radiology Impressions Thoracic Spine X-Ray 09/19/24 14:14 IMPRESSION: 1. No acute fractures noted. 2. Slight wedge deformity of several lower thoracic vertebra probably representing normal variant. 3. Degenerative changes, slight scoliosis. All radiology interpretation(s) finalized by discharge Discharge Plan Discharge Patient Disposition: Home Clinical Impression: Low back pain Qualifiers: Chronicity: acute Back pain laterality: midline Sciatica presence: without sciatica Qualified Code(s): M54.50 - Low back pain, unspecified Condition: Stable Prescriptions: New methocarbamol 500 mg tablet 1,000 mg PO Q8H Qty: 30 0RF prednisone 10 mg tablet 10 mg PO DAILY 6 Days Qty: 20 0RF Rx Instructions: Take 5 tabs on day 1-2, 4 tabs on day 3, 3 tabs on day 4, 2 tabs on day 5, and 1 tab on day 6 ibuprofen 800 mg tablet 800 mg PO Q8H PRN (Reason: pain) Qty: 20 0RF Discharge Orders: Discharge ED (Routine); Ordered 09/19/24 Ordered By: Yajaira Lance Referrals: Mikie Otero FNP [Primary Care Provider, Nurse Practitioner] Patient Instructions: Opioid Safety, Pain Management, Patient Portal & Antonia Instructions Activity Restrictions/Additional Instructions: As we discussed, please follow-up with your primary care provider in the next week or 2 especially if symptoms are not improving so they can reevaluate and determine further treatment options including advanced imaging, physical therapy, referral, etc. Print Language: Georgian Coding Level of Care Code ED Gender Studies Professor for Erinn Larsen
--- NOTE | 2024-09-19 13:00 | XR_ITS ---
WS: [email or web address] Exam: XR lumbar spine 2-3V* [id number] Date/Time of Exam: 09/19/2024 1:21 PM Reason For Exam: back pain No acute lumbar fracture or malalignment noted. Marked disc degeneration at L5- S1. Facet arthropathy at all levels. Spondylosis. On the AP view there may be compression deformity of T12. T12 not included on the lateral view. IMPRESSION1. Degenerative changes of the lumbar spine but no fracture. 2. On the AP view there may be compression deformity of T12. If the patient is symptomatic in this region then dedicated thoracic spine study might be considered.
[2024-09-19 13:23] VITALS: RESP 19; O2SAT 94
[2024-09-19] MEDS: morphine 4 mg/mL SDV 1 mL IM (13:23)
[2024-09-19] MEDS: ketorolac 60 mg/2 mL INJ IM (13:25)
[2024-09-19] MEDS: dexamethasone 10 mg/mL INJ IM (13:25)
[2024-09-19] MEDS: orphenadrine 30 mg/mL Inj 2 mL 60 MG IM (13:26)
--- NOTE | 2024-09-19 14:14 | XR_ITS ---
WS: [email or web address] Exam: XR thoracic spine 3V* [id number] Date/Time of Exam: 09/19/2024 2:14 PM Reason For Exam: lower T spine/upper L spine pain; abnormal XR No acute thoracic fracture noted. There is slight wedge deformity of several lower thoracic vertebra which do not appear to represent acute fracture. There is spondylosis. Paraspinal soft tissues are unremarkable. Very slight upper thoracic levoscoliosis. XR/XR thoracic spine 3V* [id number] IMPRESSION: 1. No acute fractures noted. 2. Slight wedge deformity of several lower thoracic vertebra probably represent ing normal variant. 3. Degenerative changes, slight scoliosis.
[2024-09-19 14:52] VITALS: BP 129/76; PULSE 65; RESP 17; O2SAT 97
== END 2024-09-19 14:56 | disposition home or self-care (01) ==
PROVIDERS: Emergency Provider Physician Assistant; PCP Nurse Practitioner
DX: M54.50 Low back pain, unspecified (principal)
CPT/HCPCS: 72072; 72100; 96372; 99284; J1100; J1885; J2270; J2360

== ENCOUNTER → 2024-10-24 13:42 | Outpatient (BNVA) | payer MEDICAID, SELFPAY | PROVIDERS: PCP Nurse Practitioner; Visit Provider Internal Medicine | DX: R07.9 Chest pain, unspecified (principal); R58 Hemorrhage, not elsewhere classified; I71.20 Thoracic aortic aneurysm, without rupture, unspecified | CPT/HCPCS: 93005 ==

== ENCOUNTER 2024-10-24 15:09 | Emergency (ER) | payer MEDICAID, SELFPAY ==
--- NOTE | 2024-10-24 15:18 | XR_ITS ---
WS: [email or web address] Portable AP upright chest, 10/24/2024 Clinical Data: cp Comparison: None Findings: No nodules, masses or effusions are seen. The heart is normal. The pulmonary vascularity is not increased. No pneumonia or pneumothorax is seen. The aortic arch and descending thoracic aorta show tortuosity. The diaphragms are flattened. XR/XR chest 1V portable [id number] Impression: Atherosclerosis and hyperinflation.
[2024-10-24 15:29] LABS: Hematocrit 43.1 % (37-53); Hemoglobin 14.60 g/dL (11.27-16.99); Mean Corpuscular HGB Conc 33.9 g/dL (30-55); Mean Corpuscular Hemoglobin 31.3 pg (27-33); Mean Corpuscular Volume 92.3 fl (82-101); Nucleated Red Blood Cells % 0 %; Platelet Count 272 10^3/cmm (157-399); Red Blood Count 4.67 10^6/uL (3.85-5.65); White Blood Count 6.88 10^3/uL (3.29-11.43)
--- NOTE | 2024-10-24 15:34 | ECG_ITS ---
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 Measurements Intervals [place] Rate: 57 P: 104 AL: 217 QRS: -5 QRSD: 117 T: 63 QT: 422 QTc: 413 Interpretive Statements SINUS BRADYCARDIA WITH FIRST DEGREE AV BLOCK POSSIBLE LATERAL MYOCARDIAL INFARCTION , OF INDETERMINATE AGE [30 ms Q WAVE IN I/aVL/V5/V6] Compared to ECG 10/24/2024 13:51:31 First degree AV block now present Myocardial infarct finding now present Intraventricular conduction delay no longer present Electronically Signed On 10-25-2024 10:23:53 CDT by Mc Estrada M.D. [id number]
[2024-10-24 15:37] VITALS: BP 130/87; PULSE 57; RESP 22; TEMP 36.5; O2SAT 95
[2024-10-24 15:52] LABS: Troponin(5th) Baseline 7 ng/L (0-15)
[2024-10-24 15:55] LABS: Alanine Aminotransferase 21 U/L (0-41); Albumin Level 4.4 g/dL (3.5-5.2); Alkaline Phosphatase 52 U/L (40-130); Anion Gap 20.1 (5-19); Aspartate Amino Transferase 19 U/L (0-40); Blood Urea Nitrogen 13 mg/dL (8-23); Calcium 9.4 mg/dL (8.5-10.5); Carbon Dioxide 18 mmol/L (22-29); Chloride 105 mmol/L (98-107); Creatinine Clr Calc Pharmacy 104.1281; Globulin 2.6 g/dL (1.3-4.6); Glucose 100 mg/dL (65-115); Lipase 24 U/L (13-60); Osmolality Calculated 288 mOsm/kg (285-295); Potassium 4.1 mmol/L (3.5-5.1); Sodium 139 mmol/L (136-145); Total Protein 7.0 g/dL (6.6-8.7)
--- NOTE | 2024-10-24 16:09 | CTR_ITS ---
PROCEDURE INFORMATION: Exam: CTA Chest With Contrast Exam date and time: 10/24/2024 4:35 PM Age: 63 years old Clinical indication: Abdominal pain; Generalized; On breathing; Additional info: Known thoracic/aaa 5.5 cm 1 year ago, chest pain, sent by steeping press tender, concern for dissection TECHNIQUE: Imaging protocol: Computed tomographic angiography of the chest with contrast. Exam focused on the arteries. 3D rendering (Not supervised by radiologist): MIP and/or 3D reconstructed images were created by the technologist. Radiation optimization: All CT scans at this facility use at least one of these dose optimization techniques: automated exposure control; mA and/or kV adjustment per patient size (includes targeted exams where dose is matched to clinical indication); or iterative reconstruction. Contrast material: OMNIPAQUE 350; Contrast volume: 125 ml; Contrast route: INTRAVENOUS (IV); COMPARISON: CT angio chest [id number] 08/15/2024 12:20 PM RADIATION DOSE METRICS: Total DLP (mGy-cm): 1065.8 FINDINGS: Pulmonary arteries: Normal. No pulmonary emboli. Aorta: There is unchanged 5.5 cm aneurysmal dilatation of the root of the ascending thoracic aorta without dissection, mural hematoma or leak. The remainder of the thoracic aorta is unremarkable. Lungs: There is subpleural atelectasis of the dependent portions of the lungs. No consolidation. No masses. Pleural spaces: Unremarkable. No pneumothorax. No pleural effusion. Heart: Unremarkable. No cardiomegaly. No pericardial effusion. Lymph nodes: Unremarkable. No enlarged lymph nodes. Bones/joints: Unremarkable. No acute fracture. Soft tissues: Unremarkable. PROCEDURE INFORMATION: Exam: CT Abdomen And Pelvis With Contrast Exam date and time: 10/24/2024 4:35 PM Age: 63 years old Clinical indication: Abdominal pain; Generalized; On breathing; Additional info: Known thoracic/aaa 5.5 cm 1 year ago, chest pain, sent by steeping press tender, concern for dissection TECHNIQUE: Imaging protocol: Computed tomography of the abdomen and pelvis with contrast. Radiation optimization: All CT scans at this facility use at least one of these dose optimization techniques: automated exposure control; mA and/or kV adjustment per patient size (includes targeted exams where dose is matched to clinical indication); or iterative reconstruction. Contrast material: OMNIPAQUE 350; Contrast volume: 125 ml; Contrast route: INTRAVENOUS (IV); COMPARISON: CT chest abdpel w/*[id number] 08/30/2023 1:02 PM RADIATION DOSE METRICS: Total DLP (mGy-cm): 1035.3 FINDINGS: Liver: Unremarkable.No mass. Gallbladder and biliary ducts: Normal. No calcified stones. No ductal dilation. Pancreas: The pancreas is normal. Spleen: The spleen is normal. An accessory splenule is present. Adrenal glands: The adrenal glands are normal. Kidneys and ureters: There is no evidence of hydronephrosis. There is no evidence of renal calcifications. There are bilateral renal cortical hypodensities measuring over 1 cm in size which have fluid density Hounsfield unit measurements compatible with simple cysts. No follow-up is necessary. Stomach and bowel: The stomach is decompressed, preventing meaningful evaluation of wall thickness. There is no evidence of intestinal perforation or obstruction. There is no evidence of colitis/diverticulitis. Mild diverticulosis is present in the distal colon. Appendix: A normal appendix is identified. Intraperitoneal space: Unremarkable. No free air. No significant fluid collection. Vasculature: There is unchanged 3.7 x 3.5 cm aneurysmal dilatation of the infrarenal distal abdominal aorta with no leak or dissection. Lymph nodes: Unremarkable.No enlarged lymph nodes. Urinary bladder: The bladder is normal. Reproductive: Unremarkable as visualized. Bones/joints: No acute bony abnormality. There is bilateral spondylolysis of L5 with grade 1 spondylolisthesis of L5 on S1. There is an old isolated fracture of the right greater trochanter. Soft tissues: There is a fat-containing umbilical hernia. There is a nonobstructing left inguinal hernia. CT/CT angio chest w abd pel w con IMPRESSION: No acute abnormality. There is unchanged 5.5 cm aneurysmal dilatation of the root of the ascending thoracic aorta without dissection, mural hematoma or leak. The remainder of the thoracic aorta is unremarkable. IMPRESSION: 1. There is unchanged 3.7 x 3.5 cm aneurysmal dilatation of the infrarenal distal abdominal aorta with no leak or dissection. 2. No acute abnormality. COMMENTS: Consistent with the [employer]'s Incidental Findings Committee white paper (J Am Silver Radiol 2018): Any incidental renal lesion less than 1 cm or classified as too small to characterize, or any incidental cystic renal lesion characterized as simple-appearing, is likely benign. No follow-up imaging is recommended for these lesions per consensus recommendations based on imaging criteria.
--- NOTE | 2024-10-24 16:09 | W.ED.CHESTPA ---
HPI - Chest Pain General: Chief Complaint: Chest Pain Stated Complaint: CP SOB something going on with R lung Time Seen by Provider: 10/24/24 16:04 History of Present Illness: Patient is 63-year-old gentleman with history of COPD, thoracic aortic aneurysm, presents to the ED due to cough, congestion x 2 weeks with chest pressure. He states there is no change in his chest pressure, however then states he has right-sided chest pressure. It is difficult to discern his chest pressure concerns. Green sputum production was noted the last 2 weeks which is a change. No fevers. Associated symptoms: Reports dyspnea and palpitations; Deny abdominal pain, fever(s), nausea or vomiting Related Data Home Medications ?Medication ?Instructions ?Recorded ?Confirmed albuterol sulfate 90 mcg/actuation 2 puff inhalation Q6H PRN 10/24/24 10/24/24 aerosol inhaler (Ventolin HFA) Shortness Of Breath Or Wheezing fenofibrate nanocrystallized 145 145 mg PO DAILY 10/24/24 10/24/24 mg tablet magnesium 200 mg tablet 200 mg PO DAILY 10/24/24 10/24/24 metoprolol succinate 25 mg 12.5 mg PO DAILY 10/24/24 10/24/24 tablet,extended release 24 hr nitroglycerin 0.4 mg sublingual 0.4 mg sublingual Q5M PRN chest 10/24/24 10/24/24 tablet pain omega 0-ldg-yrw-fish oil 120 1 cap PO DAILY 10/24/24 10/24/24 mg-180 mg-500 mg capsule (Fish Oil) omeprazole 40 mg capsule,delayed 40 mg PO DAILY 10/24/24 10/24/24 release Previous Rx's ?Medication ?Instructions ?Recorded ibuprofen 800 mg tablet 800 mg PO Q8H PRN pain #20 tabs 09/19/24 doxycycline hyclate 100 mg capsule 100 mg PO BID 10 days #20 caps 10/24/24 methylprednisolone 4 mg tablets in See Rx Instructions PO .COMPLEX 10/24/24 a dose pack (Medrol (Jerad)) #21 ea Allergies Allergy/AdvReac Type Severity Reaction Status Date / Time No Known Allergies Allergy Verified 10/24/24 15:40 Review of Systems General: Reports: 10 or more systems reviewed and unremarkable except in HPI and below Const: Denies: fever(s) or chills Card: Reports: chest pain, palpitations, irregular heart rhythm and dyspnea on exertion; Denies: swelling of feet/ankles, lightheadedness, pre-syncope, orthopnea or leg pain with exertion Resp: Reports: dyspnea; Denies: productive cough or non-productive cough GI: Denies: abdominal pain, nausea or vomiting : Denies: flank pain or difficulty urinating Musc: Denies: neck pain, extremity pain or extremity swelling Neuro: Denies: headache(s) or numbness in extremities Psych: Denies: anxiety or depression PFSH ED PFSH: Social History Smoking and tobacco/nicotine status: former use of tobacco/nicotine Substance/Drug Use: current Physical Exam Const: COMMON NORMALS: no acute distress, average body habitus, patient oriented x3, no limitations, healthy appearing, alert and well nourished GENERAL APPEARANCE: cooperative ORIENTATION/CONSCIOUSNESS: Yes awake, Yes oriented to person, Yes oriented to place and Yes oriented to time Resp: COMMON NORMALS: normal respiratory effort and clear to auscultation bilaterally AUSCULTATION: clear to auscultation bilaterally Cardio: COMMON NORMALS: regular rate and regular rhythm RATE: regular rate RHYTHM: regular rhythm GI: COMMON NORMALS: Normal to inspection, nondistended, normoactive bowel sounds present, Soft to palpation, non-tender and no masses PALPATION: Yes Soft to palpation : COMMON NORMALS: Yes no CVA tenderness BLADDER/KIDNEY EXAM: Yes no CVA tenderness Back/Pelvis: COMMON NORMALS: no CVA tenderness, thoracic and lumbar spine normal to inspection and straight leg raise negative bilaterally THORACIC SPINE/UPPER BACK: No thoracic spinal tenderness LUMBAR SPINE/LOWER BACK: Yes pain with ROM, Yes lumbar spinal tenderness, No mass present and Yes straight leg raise negative bilaterally PELVIS: Yes buttocks normal and No sciatic notch tenderness SACROILIAC JOINTS: Yes SI joints normal SACRUM: no tenderness COCCYX: no tenderness Extremity: COMMON NORMALS: capillary refill normal, no clubbing, cyanosis or edema, no calf tenderness and no pedal edema GENERAL: Yes normal exam except as noted Neuro: COMMON NORMALS: patient oriented x3, moves all extremities, no focal motor deficits, no sensory deficits noted and gait normal SENSORIUM/ORIENTATION: Yes alert, Yes oriented to person, Yes oriented to place and Yes oriented to time MOTOR EXAM: 5/5 motor strength present throughout Skin: COMMON NORMALS: no rashes or lesions noted GENERAL SKIN EXAM: no rashes or lesions noted Course Vital Signs: Vital signs: Vital Signs Temperature 97.7 F 10/24/24 15:37 Pulse Rate 53 L 10/24/24 18:08 Respiratory Rate 18 10/24/24 18:08 Blood Pressure 137/90 10/24/24 17:00 Pulse Oximetry 96 10/24/24 18:08 Oxygen Delivery Me thod Room Air 10/24/24 18:08 MDM - Chest Pain Medical Decision Making Patient is 63-year-old gentleman with aneurysm, thoracic 5.5 cm, awaiting thoracic evaluation. Discussed with patient. Discussed with nurse OOP to upload images to the cloud for thoracic surgeon to evaluate next week. No change in current aneurysm, patient was sent home without because for current issues this appears to be associated with COPD exacerbation. Lab Data 10/24/24 14:55 10/24/24 14:55 Radiology Impressions Chest X-Ray 10/24/24 15:18 Impression: Atherosclerosis and hyperinflation. Chest/Abdomen/Pelvis CT 10/24/24 16:09 IMPRESSION: No acute abnormality. There is unchanged 5.5 cm aneurysmal dilatation of the root of the ascending thoracic aorta without dissection, mural hematoma or leak. The remainder of the thoracic aorta is unremarkable. IMPRESSION: 1. There is unchanged 3.7 x 3.5 cm aneurysmal dilatation of the infrarenal distal abdominal aorta with no leak or dissection. 2. No acute abnormality. COMMENTS: Consistent with the [employer] [employer]'s Incidental Findings Committee white paper (J Am Silver Radiol 2018): Any incidental renal lesion less than 1 cm or classified as too small to characterize, or any incidental cystic renal lesion characterized as simple-appearing, is likely benign. No follow-up imaging is recommended for these lesions per consensus recommendations based on imaging criteria. Laboratory Results WBC 6.88 10^3/uL (3.29-11.43) 10/24/24 14:55 RBC 4.67 10^6/uL (3.85-5.65) 10/24/24 14:55 Hgb 14.60 g/dL (11.27-16.99) 10/24/24 14:55 Hct 43.1 % (37-53) 10/24/24 14:55 MCV 92.3 fl (82-101) 10/24/24 14:55 MCH 31.3 pg (27-33) 10/24/24 14:55 MCHC 33.9 g/dL (30-55) 10/24/24 14:55 RDW 12.6 % (12.1-15.1) 10/24/24 14:55 Plt Count 272 10^3/cmm (157-399) 10/24/24 14:55 MPV 9.3 fL (7.4-10.4) 10/24/24 14:55 Neut % (Auto) 51.1 % 10/24/24 14:55 Lymph % (Auto) 32.8 % 10/24/24 14:55 [place] % (Auto) 12.8 % 10/24/24 14:55 Eos % (Auto) 2.3 % 10/24/24 14:55 Baso % (Auto) 0.6 % 10/24/24 14:55 Neut # (Auto) 3.51 10^3/uL (1.8-7.7) 10/24/24 14:55 Lymph # (Auto) 2.3 10^3/uL (0.8-4.8) 10/24/24 14:55 [place] # (Auto) 0.9 10^3/uL (0.2-0.9) 10/24/24 14:55 Eos # (Auto) 0.2 10^3/uL (0.0-0.8) 10/24/24 14:55 Baso # (Auto) 0.0 10^3/uL (0.0-0.1) 10/24/24 14:55 Nucleated RBC % (auto) 0 % 10/24/24 14:55 Nucleated RBCs # 0.0 /100WBC 10/24/24 14:55 Sodium 139 mmol/L (136-145) 10/24/24 14:55 Potassium 4.1 mmol/L (3.5-5.1) 10/24/24 14:55 Chloride 105 mmol/L (98-107) 10/24/24 14:55 Carbon Dioxide 18 mmol/L (22-29) L 10/24/24 14:55 Anion Gap 20.1 (5-19) H 10/24/24 14:55 BUN 13 mg/dL (8-23) 10/24/24 14:55 Creatinine 1.1 mg/dL (0.7-1.2) 10/24/24 14:55 GFR Calculation 67.4 mL/min (90-130) L 10/24/24 14:55 Glucose 100 mg/dL (65-115) 10/24/24 14:55 Calculated Osmolality 288 mOsm/kg (285-295) 10/24/24 14:55 Calcium 9.4 mg/dL (8.5-10.5) 10/24/24 14:55 Total Bilirubin 0.3 mg/dL (0.15-1.2) 10/24/24 14:55 AST 19 U/L (0-40) 10/24/24 14:55 ALT 21 U/L (0-41) 10/24/24 14:55 Alkaline Phosphatase 52 U/L (40-130) 10/24/24 14:55 Lactate Dehydrogenase 199 U/L (135-225) 10/24/24 14:55 Troponin T Baseline 7 ng/L (0-15) 10/24/24 14:55 Troponin T 120 Minute 7.18 ng/L (0-15) 10/24/24 16:31 Delta Troponin T 0.18 ABS# (0-10) 10/24/24 16:31 Total Protein 7.0 g/dL (6.6-8.7) 10/24/24 14:55 Albumin 4.4 g/dL (3.5-5.2) 10/24/24 14:55 Globulin 2.6 g/dL (1.3-4.6) 10/24/24 14:55 Lipase 24 U/L (13-60) 10/24/24 14:55 All radiology interpretation(s) finalized by discharge Discharge Plan Discharge Patient Disposition: Home Clinical Impression: Acute exacerbation of chronic obstructive pulmonary disease Condition: Stable Prescriptions: New doxycycline hyclate 100 mg capsule 100 mg PO BID 10 Days Qty: 20 0RF methylprednisolone [Medrol (Jerad)] 4 mg tablets,dose pack See Rx Instructions .ROUTE .COMPLEX Qty: 21 0RF Rx Instructions: for 6 days No Action omeprazole 40 mg capsule,delayed release(DR/EC) 40 mg PO DAILY nitroglycerin 0.4 mg tablet, sublingual 0.4 mg sublingual Q5M PRN (Reason: chest pain ) Rx Instructions: do not exceed 3 doses per episode metoprolol succinate 25 mg tablet extended release 24 hr 12.5 mg PO DAILY albuterol sulfate [Ventolin HFA] 90 mcg/actuation HFA aerosol inhaler 2 puff inhalation Q6H PRN (Reason: Shortness Of Breath Or Wheezing) ibuprofen 800 mg tablet 800 mg PO Q8H PRN (Reason: pain) Qty: 20 0RF magnesium 200 mg Tablet 200 mg PO DAILY fenofibrate nanocrystallized 145 mg tablet 145 mg PO DAILY Fish Oil 120-180-500 mg Capsule 1 cap PO DAILY Discharge Orders: Discharge ED (Routine); Ordered 10/24/24 Ordered By: Dolores Maynard Referrals: Mikie Otero DELI WORKER [Primary Care Provider, Nurse Practitioner] Discharge Diet: Usual diet Patient Instructions: Patient Portal & Antonia Instructions Activity Restrictions/Additional Instructions: Medrol Dosepak, and doxycycline have been sent to the pharmacy. Utilize as directed. Take doxycycline, your antibiotic with food. Utilize a probiotic, or active culture yogurt to avoid infectious diarrhea Albuterol inhaler has been dispensed by respiratory. Utilize as directed. Return to ED for fever, worsening sputum, worsening shortness of breath, unable to speak sentences. Print Language: Luxembourgish Coding Level of Care Code ED Children'S Counselor for Erinn Larsen
[2024-10-24 16:18] VITALS: BP 137/90; PULSE 54; RESP 17; O2SAT 91
[2024-10-24] MEDS: iohexol 350 mg/mL 500 mL Btl (per mL) IV (16:46)
[2024-10-24 17:00] VITALS: BP 137/90; PULSE 53; RESP 16; O2SAT 96
[2024-10-24 17:19] LABS: Troponin 5 2HR 7.18 ng/L (0-15); Troponin 5 2HR Delta 0.18 ABS# (0-10)
[2024-10-24] MEDS: methylPREDNISolone sod succ 125 mg/2 mL INJ 80 MG IVP (17:54)
[2024-10-24 18:08] VITALS: PULSE 53; RESP 18; O2SAT 96
[2024-10-24] MEDS: albuterol 8 gm MDI 2 PUFF INHALATION (18:08)
== END 2024-10-24 18:15 | disposition home or self-care (01) ==
PROVIDERS: Emergency Medicine; Emergency Provider Physician Assistant; PCP Nurse Practitioner
DX: J44.1 Chronic obstructive pulmonary disease with (acute) exacerbation (principal); Z87.891 Personal history of nicotine dependence
CPT/HCPCS: 36415; 71045; 71275; 74177; 80053; 83615; 83690; 84484; 85025; 85610; 93005; 94640; 96374; 99285; J2919; J3535; J9999

== ENCOUNTER 2024-10-26 13:57 | Outpatient (CLI) | payer MEDICAID, SELFPAY ==
--- NOTE | 2024-10-26 14:15 | USCV_ITS ---
Celso Quinteros Age: 63 Gender: M : 1960 Exam Date: 10/26/2024 14:09 Ordering Phys: Mc Estrada M.D ([email or web address]) Technologist: NYDIA Exam Location: [facility] [place] Indication: TAA BP: 128 / 82 HR: 55 Rhythm: Sinus Technical Quality: Adequate MEASUREMENTS (Male / Female) Normal Values 2D ECHO LV Diastolic Diameter PLAX 5.8 cm 4.2 - 5.9 / 3.9 - 5.3 cm IVS Diastolic Thickness 1.4 cm 0.6 - 1.0 / 0.6 - 0.9 cm IVS Systolic Thickness 2.6 cm LVPW Diastolic Thickness 1.4 cm 0.6 - 1.0 / 0.6 - 0.9 cm LVPW Systolic Thickness 2.3 cm LVOT Diameter 2.5 cm LV Ejection Fraction 2D Teich 62.9 % LV Ejection Fraction MOD 4C 64.9 % LV Ejection Fraction MOD 2C 52.5 % LV Ejection Fraction 2C AL 55.4 % LA Diameter 3.7 cm RA Systolic Volume 4C AL 44.9 ml RA Systolic Volume 4C MOD 41.7 ml LA Sys Volume AL 66.6 cm cubed LA Sys Volume Index AL 25.1 cm cubed/m squared Aorta at Sinotubular Diameter 4.6 cm IVC Diameter 2.0 cm M-MODE LA Ao Ratio MM 0.9 AV Cusp Separation MM 1.7 cm DOPPLER AV Peak Velocity 131.0 cm/s LVOT Peak Velocity 90.0 cm/s AV Area Cont Eq vti 4.4 cm squared AV Area Cont Eq pk 3.3 cm squared MV Peak Velocity 73.0 cm/s MV Area PHT 2.8 cm squared Mitral E to A Ratio 1.0 TR Peak Velocity 88.0 cm/s TR Peak Gradient 3.1 mmHg TV Peak E Velocity 72.0 cm/s PV Peak Velocity 178.0 cm/s FINDINGS Left Ventricle Normal left ventricular size, systolic function and wall thickness, with no regional wall motion abnormalities. Left ventricular ejection fraction is estimated at 64 %. Grade I/IV diastolic dysfunction (abnormal relaxation filling pattern), normal to mildly elevated filling pressures. Right Ventricle The right ventricle is normal in size and function. Right Atrium Moderately increased right atrial size. Left Atrium The left atrium is normal in size. Mitral Valve Structurally normal mitral valve without significant stenosis or prolapse. There is no mitral regurgitation. Aortic Valve Mild aortic valve calcification. No aortic valve stenosis. Trace aortic valve regurgitation. Tricuspid Valve Structurally normal tricuspid valve without significant stenosis or regurgitation. Pulmonary artery systolic pressure is normal. Pulmonic Valve Structurally normal pulmonic valve without significant stenosis. There is no pulmonic regurgitation. Pericardium Normal pericardium without effusion. Aorta Moderately dilated aortic annulus. IVC The inferior vena cava appears normal. CONCLUSIONS Normal left ventricular size, systolic function and wall thickness, with no regional wall motion abnormalities. Left ventricular ejection fraction is estimated at 64 %. Grade I/IV diastolic dysfunction (abnormal relaxation filling pattern), normal to mildly elevated filling pressures. Moderately dilated aortic annulus. Moderately increased right atrial size. There is no pericardial effusion. Right atrial pressure is around mm of mercury. Quiirno Gibson MD (Electronically Signed) Final Date: 27 October 2024 14:33 S
== END 2024-10-26 13:58 | disposition home or self-care (01) ==
LOC: RAD 13:57
PROVIDERS: PCP Nurse Practitioner; Visit Provider Internal Medicine
DX: I77.810 Thoracic aortic ectasia (principal); I35.1 Nonrheumatic aortic (valve) insufficiency; I51.89 Other ill-defined heart diseases; I51.7 Cardiomegaly
CPT/HCPCS: 93306

== ENCOUNTER 2024-11-08 07:12 | Outpatient (CLI) | payer MEDICAID, SELFPAY ==
[2024-11-08] VITALS (13 sets, daily range): BP systolic 113–136; BP diastolic 80–94; PULSE 59–68; RESP 13–20; TEMP 36.7; O2SAT 91–96; BMI 28.8
[2024-11-08 07:41] LABS: Hematocrit 42.8 % (37-53); Hemoglobin 14.60 g/dL (11.27-16.99); Mean Corpuscular HGB Conc 34.1 g/dL (30-55); Mean Corpuscular Hemoglobin 31.3 pg (27-33); Mean Corpuscular Volume 91.8 fl (82-101); Nucleated Red Blood Cells % 0 %; Platelet Count 271 10^3/cmm (157-399); Red Blood Count 4.66 10^6/uL (3.85-5.65); White Blood Count 8.36 10^3/uL (3.29-11.43)
[2024-11-08 08:00] LABS: Anion Gap 15.6 (5-19); Blood Urea Nitrogen 22 mg/dL (8-23); Calcium 9.7 mg/dL (8.5-10.5); Carbon Dioxide 23 mmol/L (22-29); Chloride 104 mmol/L (98-107); Creatinine Clr Calc Pharmacy 87.5189; Glucose 122 mg/dL (65-115); Osmolality Calculated 291 mOsm/kg (285-295); Potassium 4.6 mmol/L (3.5-5.1); Sodium 138 mmol/L (136-145)
--- NOTE | 2024-11-08 08:30 | XACV_ITS ---
Exam Room: 2 Ht: 206 cm Wt: 122 kg BSA: 2.65 m2 Gender: Male : 1960 Any Known Allergies: No known allergies Exam Priority: Routine Procedure(s): Procedure Description: Diagnostic procedure Procedure Description: Coronary Angiography Diagnostic Cath Status: Elective Diagnostic Findings * INDICATION: Pre-operative workup / Chest pain. Patient has 5.5cm diameter aortic root. Referred to CT surgery who are planning for surgical intervention. Cardiac catheterization today for pre-operative workup. * Left Main has no significant disease. * Circumflex has mild luminal irregularities. * Right Coronary Artery is a tortuous vessel without significant disease. * Mid Left Anterior Descending: obstructive 60-70% stenosis, MARIELA: 3 flow. * Coronary angiography shows right dominance. Conclusions 1. Obstructive mid LAD stenosis. Patient will go for aortic root surgery with GEIGER to LAD. Recommendations * CT surgery is following patient for aortic root aneurysm. * Outpatient cardiology follow up in 1 month. Has an appointment with CT surgery on november 21. Pressures Phase:Rest AO : 96 / 74 ( 86 ) @ 10:23:00 AM Clinical Evaluation EBL: 5mL-10mL Procedural Details Pre-Procedure Time Out. Identified patient by full name and date of as verbalized by the patient/guarantor. Does the consent match the physician's order: Yes. Accurate & Complete Informed Consent: Yes. Inpatient/Outpatient History & Physical on Chart: Yes. If H&P is completed, is and addenduem needed: No; If yes, is the addendum complete: N/A. Visualize and Verify Site with Patient/Guarantor: N/A. Relevant Radiology Images available: Yes. Pre-op teaching completed and patient verbalized understanding. The risks, benefits, and alternatives of sedation and/or procedure were discussed by physician. The patient agrees to continue. Procedure started. Physician arrived. [facility] Clinical Fraility Score: 3: Managing Well. Machining Supervisor Indications: Pre-operative Evaluation. Chest Pain Symptom Assessment: Non-anginal Chest Pain. Correct patient, site and procedure confirmed by cath team. PERRLA. Strong, equal hand population geneticist bilaterally. Lungs clear x 5 lobes. IV Site on Arrival: 20 gauge in the right anticubital. IV Fluids: 0.9% NaCl at KVO. 0 mL infused prior to labor/excavator. Pre Procedural Pulses: left dorsalis pedis was 3+. Pre Procedural Pulses: left posterior tibial was 3+. Pre Procedural Pulses: bilateral radial was 3+. Oxygen started at 2liters/min via nasal canula. right groin was prepped with chloroprep then draped in the usual sterile fashion. right radial was prepped with chloroprep then draped in the usual sterile fashion. Baseline sample Acquired. HR: 59 BPM. Physician scrubbed in. Immediate Pre-Procedure Time Out. Correct Patient: Yes; Correct Procedure: Yes; Correct Site: Yes; Correct Patient Position: Yes; Correct Supplies: Yes; Dried Flammable Prep: Yes; Blood Products Available: N/A;. Lidocaine 1% infiltrated to the right radial. Arterial access obtained. A 5 lebanese 125cm JL4 catheter in over wire. Multiple views taken of left coronary artery. Catheter removed over the exchange wire. A 5 lebanese 125cm JR4 catheter in over wire. Multiple views taken of right coronary artery. Catheter removed over the exchange wire. Physician scrubbed out. A TR Band was successful obtaining hemostatsis at the Right Radial artery insertion site. Post Procedure: Pulses reassessed and unchanged. TR band placed. Hemostasis obtained. PERRLA. Strong, equal hand population geneticist bilaterally. No VTE prophylaxis required. Medication's Wasted: Lidocaine 1% = 18 mL. Medication's Wasted: Nitro = 49.8 mcg. Medication's Wasted: Heparin = 1000 units. Medication's Wasted: Other = Fentanyl 25mcg Versed 1 mg. Total IV fluids: 255 mL. Vital chart was stopped. Complications: None. Post-op diagnosis: CAD. Estimated blood loss: 5mL-10mL. Responsiveness - Normal response to verbal stimuli; alert and oriented, PERRLA. Airway - Unaffected, no intervention required; spontaneous ventilation. Circulation: W/N/L, pulses unchanged. Nausea/Vomiting: No. Procedure completed. Patient transferred by stretcher to CPRU. Access Site Site: Right Radial artery Sheath Size: 6 Fr Hemostasis Method: TR Band Hemostasis Success: Successful Procedure Medications Start: 9:08 AM Stop: 9:08 AM Medication: Versed Amount: 1 mg Route: I.V. Start: 9:08 AM Stop: 9:08 AM Medication: Fentanyl Amount: 50 mcg Route: I.V. Start: 9:13 AM Stop: 9:13 AM Medication: Versed Amount: 1 mg Route: I.V. Start: 9:17 AM Stop: 9:17 AM Medication: Nitrogylcerin Amount: 200 mcg Route: I.A. Start: 9:19 AM Stop: 9:19 AM Medication: Heparin Amount: 5000 units Route: I.V. Start: 9:20 AM Stop: 9:20 AM Medication: 0.9% Saline Amount: 250 ml Route: I.V. bolus Start: 9:26 AM Stop: 9:26 AM Medication: Versed Amount: 1 mg Route: I.V. Start: 9:30 AM Stop: 9:30 AM Medication: Fentanyl Amount: 25 mcg Route: I.V. I, the attending physician, have reviewed and verified all procedure medications. Yes, all medications given per verbal order History/Risk Factors Hypertension: No Dyslipidemia: No Peripheral Arterial Disease (PAD): No Myocardial Infarction (DE): No Obesity: No Renal Disease: No Tobacco Use: Former Prior Interventions PCI: No CABG: No Valve Surgery: No Report Signatures Finalized by Mc Estrada MD on 11/08/2024 10:56 AM
--- NOTE | 2024-11-08 09:03 | W.PM.OPSUD ---
Surgery/Procedure H&P Update DATE OF PROCEDURE: November 08, 2024 DATE H&P PERFORMED: 10/24/24 H&P UPDATE INFORMATION: I have reviewed H&P completed within last 30 days, I have examined patient prior to procedure and No changes to prior documentation PREOP DIAGNOSIS: Pre-operative work up for aortic root replacement/ Chest pain PRIMARY INDICATION FOR PROCEDURE: Pre-operative work up for aortic root replacement/ Chest pain PLANNED PROCEDURE: Operation Date: 11/08/24 08:30 Proposed Procedures p Cardiac Catheterization(Left) - Mc Estrada M.D PATIENT REASSESSED PRIOR TO SEDATION, WITH NO CHANGE NOTED: Yes PHYSICAL EXAM: alert, oriented x 3, clear to auscultation bilaterally and regular rate & rhythm AIRWAY EVAL/ANESTHESIA PLAN: normal airway, ASA III, Local Anesthesia, Risks, benefits & alternatives of sedation and/or procedure discussed and Patient agrees to continue as planned ADDITIONAL INFORMATION: Moderate sedation
--- NOTE | 2024-11-08 09:45 | SUR.PHASEII ---
POST CATH FLUIDS IV SET AT 100 ML/HR PER VERBAL ORDER FROM DR CASTILLO UNTIL DISCHARGE. NOTED.
--- NOTE | 2024-11-08 09:45 | SUR.PHASEII ---
POST CATH NOTE Recieved patient from microbiological lab technician. Status post cardiac catheterization via the right radial approach. TR Band in place. No hematoma formation noted at this time. Verbal post cath instuctions went over with the patient/family. They understood well. Call light within reach. Informed to call for needs.
== END 2024-11-08 12:42 | disposition home or self-care (01) ==
PROVIDERS: PCP Nurse Practitioner; Visit Provider Internal Medicine
DX: I25.10 Atherosclerotic heart disease of native coronary artery without angina pectoris (principal); R00.2 Palpitations; K21.9 Gastro-esophageal reflux disease without esophagitis; I71.20 Thoracic aortic aneurysm, without rupture, unspecified; Z87.891 Personal history of nicotine dependence
CPT/HCPCS: 36415; 80048; 85025; 93454; 99152; 99153; C1769; C1887; C1894; J1644; J2250; J3010; J3490; J7030; J9999; Q0163; Q9967

== ENCOUNTER → 2025-01-10 13:27 | Outpatient (BNVA) | payer MEDICARE, MEDICAID, SELFPAY | PROVIDERS: PCP Nurse Practitioner; Visit Provider Internal Medicine | DX: I25.10 Atherosclerotic heart disease of native coronary artery without angina pectoris (principal); I71.20 Thoracic aortic aneurysm, without rupture, unspecified; Z95.1 Presence of aortocoronary bypass graft; Z87.891 Personal history of nicotine dependence | CPT/HCPCS: 99214 ==

== ENCOUNTER → 2025-03-12 10:44 | Outpatient (BNVA) | payer MEDICARE, MEDICAID, SELFPAY | PROVIDERS: PCP Nurse Practitioner; Visit Provider Nurse Practitioner Family | DX: Z01.818 Encounter for other preprocedural examination (principal); I25.10 Atherosclerotic heart disease of native coronary artery without angina pectoris; R00.2 Palpitations; G89.18 Other acute postprocedural pain; E78.5 Hyperlipidemia, unspecified; H26.9 Unspecified cataract; R07.89 Other chest pain; Z87.891 Personal history of nicotine dependence | CPT/HCPCS: 99214 ==

== ENCOUNTER 2025-03-22 08:56 | Outpatient (CLI) | payer MEDICARE, MEDICAID, SELFPAY ==
--- NOTE | 2025-03-22 09:30 | CTR_ITS ---
PROCEDURE INFORMATION: Exam: CTA Chest With Contrast Exam date and time: 03/22/2025 9:45 AM Age: 64 years old Clinical indication: Chest pressure and sternal or substernal pain; Prior surgery; Surgery date: 1-6 months; Surgery type: Cabg and thoracic aneurysm repair; Additional info: HX of cabg and thoracic aneurysm repair 3 months ago, persistent pain since surgery TECHNIQUE: Imaging protocol: Computed tomographic angiography of the chest with contrast. Exam focused on the arteries. 3D rendering (Not supervised by radiologist): MIP and/or 3D reconstructed images were created by the technologist. Radiation optimization: All CT scans at this facility use at least one of these dose optimization techniques: automated exposure control; mA and/or kV adjustment per patient size (includes targeted exams where dose is matched to clinical indication); or iterative reconstruction. Contrast material: OMNIPAQUE 350; Contrast volume: 100 ml; Contrast route: INTRAVENOUS (IV); COMPARISON: CT angio chest w abd pel w con 10/24/2024 4:35 PM RADIATION DOSE METRICS: Total DLP (mGy-cm): 1107.74 FINDINGS: Pulmonary arteries: No acute pulmonary thromboembolism. There are no suspicious intraluminal filling defects in the subsegmental pulmonary arteries bilaterally. Aorta: There is an ascending aortic aneurysm measuring 5.4 cm. The size of the aneurysm is unchanged compared with the prior exam of 10/24/2024. Lungs: There are bibasilar posterior dependent opacities which may reflect atelectasis or infiltrates. Pleural spaces: Unremarkable. No pneumothorax. No pleural effusion. Heart: Unremarkable. No cardiomegaly. No pericardial effusion. There are moderate coronary artery calcifications. Lymph nodes: Unremarkable. No enlarged lymph nodes. Bones/joints: Unremarkable. No acute fracture. Soft tissues: Unremarkable. Upper abdomen: There is a small cyst in the upper pole of the right kidney measuring 2.5 cm. No follow-up is needed. CT/CT angio chest [id number] IMPRESSION: 1. No acute pulmonary thromboembolism or aortic dissection. 2. Stable ascending thoracic aortic aneurysm measuring 5.4 cm. 3. Bibasilar posterior dependent atelectasis or infiltrates. Pneumonia cannot be excluded. Clinical correlation for symptoms of pneumonia is recommended. Bosniak I and II: No follow-up is typically required unless the cyst becomes symptomatic. These cysts are considered benign and have a very low risk of malignancy. COMMENTS: Consistent with the [employer]'s Incidental Findings Committee white paper (J Am Silver Radiol 2018): Any incidental renal lesion less than 1 cm or classified as too small to characterize, or any incidental cystic renal lesion characterized as simple-appearing, is likely benign. No follow-up imaging is recommended for these lesions per consensus recommendations based on imaging criteria.
[2025-03-22] MEDS: iohexol 350 mg/mL 500 mL Btl (per mL) IV (09:40)
[2025-03-22 09:57] LABS: Blood Urea Nitrogen 15 mg/dL (8-23)
== END 2025-03-22 08:57 | disposition home or self-care (01) ==
PROVIDERS: PCP Nurse Practitioner; Visit Provider Nurse Practitioner Family
DX: R07.89 Other chest pain (principal); I71.21 Aneurysm of the ascending aorta, without rupture; Z95.1 Presence of aortocoronary bypass graft; Z95.828 Presence of other vascular implants and grafts; J98.4 Other disorders of lung; N28.1 Cyst of kidney, acquired
CPT/HCPCS: 71275; 82565; 84520